=== PATIENT | male | born 1980 | race Hispanic/Latino ===

== ENCOUNTER 2016-08-02 07:44 | Emergency (ER) | payer OTHER ==
[2016-08-02 08:04] VITALS: TEMP 98.3; O2SAT 99
[2016-08-02] MEDS ORDERED: LIDOCAINE 1% 10 ML VIAL INJ ONE (08:11)
--- NOTE | 2016-08-02 08:27 | ED.PDOC ---
History of Present Illness - General Chief Complaint: Laceration Stated Complaint: LACERATION TO LEFT ARM Time Seen by Provider: 08/02/16 07:48 Source: patient Exam Limitations: no limitations - History of Present Illness Initial Comments: the patient is a 35-year-old male presenting to the emergency room due to a laceration to his mid right forearm. The laceration is on the volar aspect and is approximately one and 1/4 inch long. The laceration is through the skin but not into the underlying muscle or tendons. There is no significant area of sensory deficit distally. He is vascularly preserved. no other injuries. It happened approximately 20 minutes prior to arrival Estimated blood loss is less than 3 cc Timing/Duration: momentarily Severity: mild Improving Factors: nothing Worsening Factors: nothing Associated Symptoms: denies symptoms Allergies/Adverse Reactions: Allergies NO KNOWN ALLERGY Allergy (Verified 05/05/15 17:46) Review of Systems - Review of Systems Constitutional: States: no symptoms reported EENTM: States: no symptoms reported Respiratory: States: no symptoms reported Cardiology: States: no symptoms reported Gastrointestinal/Abdominal: States: no symptoms reported Genitourinary: States: no symptoms reported Musculoskeletal: States: no symptoms reported Skin: States: see HPI Neurological: States: no symptoms reported Endocrine: States: no symptoms reported All other Systems: No Change from Baseline Past Medical History (General) - Patient Medical History Hx Seizures: No Hx Asthma: No Hx Cardiac Disorders: No Hx Renal Disease: No Surgical History: no surgical history - Vaccination History Hx Tetanus, Diphtheria Vaccination: Yes Hx Influenza Vaccination: No Hx Pneumococcal Vaccination: No - Social History Hx Tobacco Use: No Hx Alcohol Use: Yes - OCC [facility] Hx Substance Use: No Hx Substance Use Treatment: No Hx Depression: No Feels Threatened In Home Enviroment: No Family Medical History - Family History Mother Family History: Unknown Physical Exam - Physical Exam General Appearance: Alert, Comfortable, No apparent distress Eye Exam: bilateral normal Ears, Nose, Throat: hearing grossly normal, normal pharynx Neck: full range of motion Respiratory: no respiratory distress, no accessory muscle use Cardiovascular/Chest: normal peripheral pulses, no edema Peripheral Pulses: radial,right: 2+, radial,left: 2+ Rectal Exam: deferred Extremity: normal range of motion, no pedal edema, normal capillary refill Neurologic: alert, normal mood/affect, oriented x 3 Skin Exam: normal color - laceration as above Comments: Vital Signs - 24 hr 08/02/16 07:59 Temperature 98.3 F Pulse Rate [ 83 MONITOR] Respiratory 20 Rate Blood Pressure 127/81 [Left Arm] O2 Sat by Pulse 99 Oximetry Progress - Progress Progress: 08/02/16 08:27 the patient is a 35-year-old male presenting to the emergency room secondary to a 1.25 inch laceration to his right forearm. Risk and benefits of repair were explained. The patient agrees to proceed. Wound was cleaned with hydrogen peroxide. 3 cc of lidocaine without epinephrine were used for a local anesthetic. 4 simple sutures of 4-0 Ethilon were used for reapproximation. Dressing was applied. The patient tolerated the procedure well. Sutures need to be removed in one week. ER warnings were given. Vaccines are reportedly up- to-date. Departure - Departure Clinical Impression: Accidental laceration Disposition: Discharge to Home or Self Care Condition: Fair Departure Forms: ED Discharge - Pt. Copy, Patient Portal Self Enrollment Instructions: DI for Laceration Repair -- Simple Diet: regular diet Activity: increase activity as tolerated Additional Instructions: the patient is a 35-year-old male presenting to the emergency room secondary to a 1.25 inch laceration to his right forearm. Risk and benefits of repair were explained. The patient agrees to proceed. Wound was cleaned with hydrogen peroxide. 3 cc of lidocaine without epinephrine were used for a local anesthetic. 4 simple sutures of 4-0 Ethilon were used for reapproximation. Dressing was applied. The patient tolerated the procedure well. Sutures need to be removed in one week. ER warnings were given. Vaccines are reportedly up- to-date.
[2016-08-02 08:45] VITALS: BP 138/94
[2016-08-02] MEDS: SULFA/TRIMETH 800/160 (DS) TAB 1 EA TAB PO ONE (08:45)
== END 2016-08-02 08:45 | disposition home or self-care (01) ==
LOC: ER 07:44
DX: S51.811A Laceration without foreign body of right forearm, initial encounter (principal); X58.XXXA Exposure to other specified factors, initial encounter; Y92.9 Unspecified place or not applicable